=== PATIENT | male | born 1965 | race Caucasian/White ===

== ENCOUNTER 2018-02-17 07:30 | Outpatient (CLI) | payer OTHER ==
[2018-02-17] MEDS ORDERED: Iopamidol 370 76% 100 ML VIAL ONE (09:00)
--- NOTE | 2018-02-17 11:01 | CT ---
CT ABDOMEN AND PELVIS WITH AND WITHOUT IV CONTRAST: HISTORY: Gross hematuria. Right kidney mass. FINDINGS: There are no previous exams for comparison. The lung bases are clear. The liver demonstrates decreased attenuation, compared to the spleen, cons istent with fatty infiltration. The spleen, pancreas, and adrenal glands are normal. No calcified g allstones are seen. No free air, free fluid, or lymphadenopathy is noted in the abdomen or pelvis. No calculi are identified in the kidneys or ureters or in the urinary bladder. No hydroureteronephro sis is seen on either side. There is an 8 cm cyst arising from the posterior cortex of the right kid mansoor with thin internal septation with a few thin calcifications. No post contrast enhancement is see n. A nonenhancing cyst is also seen arising from the right anteromedial cortex, measuring 3.5 cm. N o post contrast enhancement is seen. There is a tiny low density lesion in the left renal cortex, to o small to characterize, measuring about 7 mm. There are vascular calcifications without evidence of aneurysmal dilatation of the abdominal aorta. Degenerative changes are seen in the spine. There is normal contrast excretion into the ureters and the urinary bladder. There is mild colonic diverticulosis. A normal appearing appendix is present.A small fat-containing umbilical hernia is present. IMPRESSION: 1. Fatty liver. 2. Bosniak category I and category II right renal cystic masses and tiny 7 mm indeterminate lesion i n the left kidney. 3. Colonic diverticulosis. POS: [facility]
== END 2018-02-17 07:31 | disposition home or self-care (01) ==
LOC: SCSCT 07:30
PROVIDERS: ATTEND Urology
DX: N28.1 Cyst of kidney, acquired (principal); R31.0 Gross hematuria; K76.0 Fatty (change of) liver, not elsewhere classified; K57.30 Diverticulosis of large intestine without perforation or abscess without bleeding; N28.89 Other specified disorders of kidney and ureter
CPT/HCPCS: 74178

== ENCOUNTER 2020-12-29 14:21 | Inpatient (IN) | payer OTHER ==
[2020-12-29] MEDS ORDERED: Morphine 4 MG/ML VIAL ONE (15:31)
[2020-12-29] MEDS ORDERED: Ondansetron ODT 4 MG TAB PO PRN (16:00)
[2020-12-29] MEDS ORDERED: Ondansetron PF 4 MG/2 ML Vial IVP PRN (16:00)
[2020-12-29] MEDS ORDERED: Morphine 4 MG/ML VIAL SLOW IVP PRN (16:04)
[2020-12-29] MEDS ORDERED: Dextrose 5% in Water 1,000 ML IV PRN (16:05)
[2020-12-29] MEDS ORDERED: Dextrose 50% Abboject 50 ML SYRINGE SLOW IVP PRN (16:05)
[2020-12-29] MEDS ORDERED: HumaLOG 300 UNITS/3 ML VIAL SC PRN (16:05)
[2020-12-29] MEDS ORDERED: Aspirin 325 mg Enteric Coated Tablet PO SCH (17:00)
[2020-12-29] MEDS ORDERED: Morphine 4 MG/ML VIAL SLOW IVP SCH (17:00)
[2020-12-29] MEDS: Lactated Ringer's 1,000 ML IV SCH (17:48)
[2020-12-29] MEDS: metFORMIN 500 MG TAB PO SCH (17:59)
[2020-12-29 18:12] VITALS: BMI 24.6
[2020-12-29] MEDS: HumaLOG 300 UNITS/3 ML VIAL SC PRN ×2 (18:20→21:27)
[2020-12-29] MEDS: Amitriptyline HCl 100 MG TAB PO SCH (21:23)
[2020-12-29] MEDS: Tamsulosin HCl 0.4 MG CAP PO SCH (21:23)
[2020-12-29] MEDS: Lantus 1000 UNITS/10 ML VIAL SC SCH (21:28)
[2020-12-29] MEDS: Morphine 4 MG/ML VIAL SLOW IVP SCH (21:31)
[2020-12-30] MEDS: Morphine 4 MG/ML VIAL SLOW IVP SCH ×6 (01:21→21:17)
[2020-12-30] MEDS: Lactated Ringer's 1,000 ML IV SCH ×5 (01:21→21:32)
[2020-12-30 01:59] LABS: SARS-CoV-2 PCR by NAA Not Detected (NotDetected)
[2020-12-30 06:03] LABS: ALT (SGPT) 9 U/L (8-55); AST (SGOT) 10 U/L (5-34); Alkaline Phosphatase 71 U/L (40-110); Anion Gap 13 mmol/L (10-20); BUN (Urea Nitrogen) 7 mg/dL (8.4-25.7); Bilirubin, Total 0.8 mg/dL (0.2-1.2); Calc. Creatinine Clearance 139 mL/min (70-130); Calcium 8.4 mg/dL (7.8-10.44); Carbon Dioxide 26 mmol/L (22-29); Chloride 101 mmol/L (98-107); Globulin 2.8 g/dL (2.4-3.5); Glucose 164 mg/dL (70-105); Potassium 3.6 mmol/L (3.5-5.1); Protein, Total 5.8 g/dL (6.0-8.3); Sodium 136 mmol/L (136-145)
[2020-12-30 06:12] LABS: Hemoglobin 12.7 g/dL (14.0-18.0); Mean Corpuscular HGB CONC 33.3 g/dL (32.0-36.0); Platelet Count 141 thou/uL (130-400); RBC Distribution Width 12.4 % (11.5-14.5); Red Blood Cell (RBC) Count 4.39 mill/uL (4.70-6.10); White Blood Cell (WBC) Count 19.1 thou/uL (4.8-10.8)
[2020-12-30 06:26] LABS: Band 1 % (5-11); Lymphocytes 65 % (21-51); MDiff Complete? YES; Monocytes 3 % (0-10); Neutrophil 28 % (42-75); Reactive Lymphocytes 3 % (0-10)
[2020-12-30] MEDS: Tamsulosin HCl 0.4 MG CAP PO SCH ×2 (08:35→21:23)
[2020-12-30] MEDS: Lantus 1000 UNITS/10 ML VIAL SC SCH ×2 (08:35→21:23)
[2020-12-30] MEDS: Rosuvastatin 10 MG TAB PO SCH (08:35)
[2020-12-30] MEDS: metFORMIN 500 MG TAB PO SCH ×2 (08:35→16:07)
[2020-12-30] MEDS ORDERED: Bisacodyl 10 MG SUPP PR SCH (10:00)
[2020-12-30] MEDS: Morphine 2 MG/ML VIAL SLOW IVP PRN ×2 (10:46→16:07)
[2020-12-30] MEDS: HumaLOG 300 UNITS/3 ML VIAL SC PRN ×2 (17:56→21:24)
[2020-12-30] MEDS: Amitriptyline HCl 100 MG TAB PO SCH (21:17)
[2020-12-30] MEDS: Bisacodyl 10 MG SUPP PR SCH (21:27)
[2020-12-31] MEDS: Morphine 4 MG/ML VIAL SLOW IVP SCH ×3 (01:39→09:30)
[2020-12-31] MEDS: HumaLOG 300 UNITS/3 ML VIAL SC PRN ×4 (05:40→20:13)
[2020-12-31] MEDS: Lactated Ringer's 1,000 ML IV SCH ×3 (05:40→19:07)
[2020-12-31] MEDS: Tamsulosin HCl 0.4 MG CAP PO SCH ×2 (08:36→20:13)
[2020-12-31] MEDS: Rosuvastatin 10 MG TAB PO SCH (08:36)
[2020-12-31] MEDS: metFORMIN 500 MG TAB PO SCH ×2 (08:36→16:00)
[2020-12-31] MEDS: Lantus 1000 UNITS/10 ML VIAL SC SCH ×2 (08:37→20:13)
[2020-12-31] MEDS: Bisacodyl 10 MG SUPP PR SCH ×2 (08:37→20:13)
[2020-12-31] MEDS ORDERED: Morphine IR 10 MG/5 ML UDCUP PO PRN (10:15)
[2020-12-31] MEDS ORDERED: Polyethylene Glycol 3350 17 GM Packet PO SCH (10:45)
[2020-12-31] MEDS ORDERED: Senokot 8.6 MG TAB PO SCH (10:45)
[2020-12-31] MEDS ORDERED: Morphine IR Tab 15 MG TAB PO PRN (10:46)
[2020-12-31] MEDS ORDERED: fentaNYL 50 mcg/hour Patch TD SCH (11:00)
[2020-12-31] MEDS: Morphine IR Tab 15 MG TAB PO SCH ×4 (11:58→23:31)
[2020-12-31] MEDS: Senokot 8.6 MG TAB PO SCH (20:13)
[2020-12-31] MEDS: Amitriptyline HCl 100 MG TAB PO SCH (20:13)
[2021-01-01] MEDS: Lactated Ringer's 1,000 ML IV SCH (03:01)
[2021-01-01] MEDS: Morphine IR Tab 15 MG TAB PO SCH ×2 (03:01→06:29)
[2021-01-01] MEDS: HumaLOG 300 UNITS/3 ML VIAL SC PRN ×2 (06:29→12:08)
[2021-01-01] MEDS ORDERED: Naloxone HCl 0.4 mg/ml Vial IV PRN (08:43)
[2021-01-01] MEDS ORDERED: Polyethylene Glycol 3350 17 GM Packet PO SCH ×4 (09:00→10:52)
[2021-01-01] MEDS: metFORMIN 500 MG TAB PO SCH ×2 (09:13→16:02)
[2021-01-01] MEDS: Bisacodyl 10 MG SUPP PR SCH ×2 (09:14→20:22)
[2021-01-01] MEDS: Morphine ER 15 MG TAB PO SCH ×2 (09:14→20:24)
[2021-01-01] MEDS: Tamsulosin HCl 0.4 MG CAP PO SCH ×2 (09:15→20:22)
[2021-01-01] MEDS: Senokot 8.6 MG TAB PO SCH ×2 (09:15→20:22)
[2021-01-01] MEDS: Rosuvastatin 10 MG TAB PO SCH (09:15)
[2021-01-01] MEDS: Lantus 1000 UNITS/10 ML VIAL SC SCH ×2 (09:16→20:52)
[2021-01-01] MEDS: Morphine IR Tab 15 MG TAB PO PRN ×2 (11:45→16:02)
[2021-01-01] MEDS: ACETAMINOPHEN WITH CODEINE PO SCH ×2 (12:26→12:27)
[2021-01-01] MEDS ORDERED: Magnevist 469MG/ML 20 ML VIAL ONE (15:01)
[2021-01-01] MEDS ORDERED: Magnesium Citrate 300 ML BOT PO SCH (15:30)
[2021-01-01] MEDS ORDERED: Acetaminophen 325 MG TAB PO PRN (17:15)
[2021-01-01 17:55] LABS: Hemoglobin 14.1 g/dL (14.0-18.0); Mean Corpuscular HGB CONC 33.3 g/dL (32.0-36.0); Mean Corpuscular Hemoglobin 28.6 pg (27.0-31.0); Mean Corpuscular Volume 85.9 fL (78.0-98.0); Mean Platelet Volume 7.5 fL (7.4-10.4); Platelet Count 237 thou/uL (130-400); RBC Distribution Width 12.3 % (11.5-14.5); Red Blood Cell (RBC) Count 4.91 mill/uL (4.70-6.10); White Blood Cell (WBC) Count 26.1 thou/uL (4.8-10.8)
[2021-01-01 18:00] LABS: ALT (SGPT) 7 U/L (8-55); AST (SGOT) 11 U/L (5-34); Albumin 3.9 g/dL (3.5-5.0); Alkaline Phosphatase 90 U/L (40-110); Anion Gap 13 mmol/L (10-20); BUN (Urea Nitrogen) 4 mg/dL (8.4-25.7); Calc. Creatinine Clearance 128 mL/min (70-130); Calcium 9.5 mg/dL (7.8-10.44); Carbon Dioxide 31 mmol/L (22-29); Chloride 95 mmol/L (98-107); Globulin 3.5 g/dL (2.4-3.5); Glucose 109 mg/dL (70-105); Lipase Less than 4 U/L (8-78); Potassium 4.1 mmol/L (3.5-5.1); Protein, Total 7.4 g/dL (6.0-8.3); Sodium 135 mmol/L (136-145)
[2021-01-01 18:31] LABS: Band 11 % (5-11); Lymphocytes 36 % (21-51); MDiff Complete? YES; Monocytes 3 % (0-10); Neutrophil 30 % (42-75); Platelet Morphology Comment Appears Adequate; RBC Morphology Normal; Reactive Lymphocytes 20 % (0-10)
[2021-01-01] MEDS: Amitriptyline HCl 100 MG TAB PO SCH (20:21)
[2021-01-02] MEDS: Morphine IR Tab 15 MG TAB PO PRN ×2 (05:47→12:40)
[2021-01-02 06:48] LABS: Mean Corpuscular HGB CONC 33.3 g/dL (32.0-36.0); Mean Corpuscular Hemoglobin 28.9 pg (27.0-31.0); Mean Corpuscular Volume 86.7 fL (78.0-98.0); Mean Platelet Volume 7.9 fL (7.4-10.4); Platelet Count 240 thou/uL (130-400); RBC Distribution Width 12.3 % (11.5-14.5); Red Blood Cell (RBC) Count 4.52 mill/uL (4.70-6.10); White Blood Cell (WBC) Count 19.8 thou/uL (4.8-10.8)
[2021-01-02 06:53] LABS: ALT (SGPT) 8 U/L (8-55); AST (SGOT) 11 U/L (5-34); Albumin 3.3 g/dL (3.5-5.0); Alkaline Phosphatase 92 U/L (40-110); Anion Gap 14 mmol/L (10-20); BUN (Urea Nitrogen) 4 mg/dL (8.4-25.7); Bilirubin, Total 0.6 mg/dL (0.2-1.2); Calc. Creatinine Clearance 120 mL/min (70-130); Carbon Dioxide 29 mmol/L (22-29); Chloride 99 mmol/L (98-107); Globulin 3.2 g/dL (2.4-3.5); Glucose 322 mg/dL (70-105); Potassium 4.3 mmol/L (3.5-5.1); Protein, Total 6.5 g/dL (6.0-8.3); Sodium 138 mmol/L (136-145)
[2021-01-02] MEDS: Tamsulosin HCl 0.4 MG CAP PO SCH (08:28)
[2021-01-02] MEDS: Senokot 8.6 MG TAB PO SCH (08:28)
[2021-01-02] MEDS: metFORMIN 500 MG TAB PO SCH (08:28)
[2021-01-02] MEDS: Rosuvastatin 10 MG TAB PO SCH (08:28)
[2021-01-02] MEDS: Lantus 1000 UNITS/10 ML VIAL SC SCH (08:30)
[2021-01-02 08:35] LABS: Band 6 % (5-11); Eosinophils 2 % (0-10); Lymphocytes 62 % (21-51); MDiff Complete? YES; Monocytes 6 % (0-10); Neutrophil 23 % (42-75); Platelet Morphology Comment Appears Adequate; Polychromasia SLIGHT = 2-3 cells (100X) (0-2/hpf)
[2021-01-02] MEDS ORDERED: Polyethylene Glycol 3350 17 GM Packet PO SCH ×2 (09:00)
[2021-01-02] MEDS ORDERED: Morphine ER 15 MG TAB PO SCH (09:00)
[2021-01-02] MEDS ORDERED: Calcium Carbonate 500 MG ChewTAB PO PRN (09:02)
[2021-01-02] MEDS: HumaLOG 300 UNITS/3 ML VIAL SC PRN (12:37)
[2021-01-02 16:59] VITALS: BP 135/76; TEMP 98.3
== END 2021-01-02 16:53 | disposition home or self-care (01) | DRG 815 ==
LOC: ERS 14:21 → OBSVTOIN 15:30 → UNDOADMIN 15:30 → T4-B 15:30 → INTOOBSV 15:30 → T4-B 01-01 12:22 → UNDODISIN 01-02 16:53
PROVIDERS: ADMIT Emergency Medicine; ATTEND Emergency Medicine
DX: D73.5 Infarction of spleen (principal); C91.10 Chronic lymphocytic leukemia of B-cell type not having achieved remission; C78.7 Secondary malignant neoplasm of liver and intrahepatic bile duct; E11.9 Type 2 diabetes mellitus without complications; I10 Essential (primary) hypertension; E78.5 Hyperlipidemia, unspecified; K59.00 Constipation, unspecified; G89.29 Other chronic pain; Z20.822 Contact with and (suspected) exposure to COVID-19; K86.89 Other specified diseases of pancreas; M54.9 Dorsalgia, unspecified; Z88.2 Allergy status to sulfonamides; Z79.4 Long term (current) use of insulin; Z87.891 Personal history of nicotine dependence
CPT/HCPCS: 36415; 36416; 74183; 80053; 82010; 83690; 85025; 87635; 96374; 96376; A9579; G0378; J1815; J2270; U0003; U0005